=== PATIENT | female | born 1995 | race Caucasian/White ===

== ENCOUNTER 2021-07-15 16:10 | Emergency (ER) | payer BC, OTHER ==
[2021-07-15] MEDS ORDERED: SODIUM CHLORIDE 0.9% 1,000 ML IV STA (16:28)
[2021-07-15] MEDS ORDERED: ACETAMINOPHEN TAB 325 MG TAB PO STA (16:28)
[2021-07-15] MEDS ORDERED: cefTRIAXone IN SWFI 1,000 MG/10 ML SYRINGE IVP STA ×2 (16:29→17:17)
[2021-07-15 17:03] LABS: Basophils % (A) 0 %; Eosinophils # (A) 0.1 k/uL (0-0.7); Eosinophils % (A) 1 %; HCT 38.5 % (34.0-46.0); Lymphocytes # (A) 0.5 k/uL (1.0-4.8); Lymphocytes % (A) 4 %; MCH 28.6 pg (25.0-35.0); MCHC 33.9 g/dL (31.0-37.0); MCV 84.4 fL (80.0-100.0); Mean Platelet Volume 7.2; Monocytes # (A) 0.2 k/uL (0-1.0); Monocytes % (A) 2 %; Neutrophils # (A) 9.8 k/uL (1.3-7.7); Neutrophils % (A) 92 %; Platelet Count 212 k/uL (150-450); RBC 4.56 m/uL (3.80-5.40); RDW 12.9 % (11.5-15.5); WBC 10.7 k/uL (3.8-10.6)
[2021-07-15 17:06] LABS: Appearance,Urine Cloudy (Clear); Bacteria,Urine Moderate /hpf; Bilirubin,Urine Negative (Negative); Blood,Urine Moderate (Negative); Budding Yeast,Urine Many /hpf; Color,Urine Yellow; Glucose,Urine (UA) Negative (Negative); Ketones,Urine Negative (Negative); Leukocyte Esterase,Urine Large (Negative); Mucus,Urine Rare /hpf; Nitrite,Urine Positive (Negative); Protein,Urine 1+ (Negative); RBC,Urine 24 /hpf (0-5); Specific Gravity,Urine 1.014 (1.001-1.035); Squamous Epithelial Cell,Urine 4 /hpf (0-4); Urobilinogen,Urine <2.0 mg/dL (<2.0); WBC,Urine >182 /hpf (0-5)
[2021-07-15 17:12] LABS: ALT 15 U/L (4-34); AST 22 U/L (14-36); African American GFR (CKD) >90 (>60 ml/min/1.73 sqM); Albumin 4.7 g/dL (3.5-5.0); Alkaline Phosphatase 43 U/L (38-126); Anion Gap 11 mmol/L; Blood Urea Nitrogen 12 mg/dL (7-17); Calcium 9.3 mg/dL (8.4-10.2); Carbon Dioxide 24 mmol/L (22-30); Chloride 100 mmol/L (98-107); Glucose 111 mg/dL (74-99); Non-African American GFR(CKD) >90 (>60 ml/min/1.73 sqM); Potassium 3.8 mmol/L (3.5-5.1); Sodium 135 mmol/L (137-145); Total Protein 7.7 g/dL (6.3-8.2)
--- NOTE | 2021-07-15 17:33 | ED ---
Fever HPI - General Chief Complaint: Fever Stated Complaint: fever, r side rib pain Time Seen by Provider: 07/15/21 16:19 Source: patient Mode of arrival: ambulatory Limitations: no limitations - History of Present Illness Initial Comments: 26 -year-old male presenting to emergency department with chief complaint of flank pain and UTI. Patient reports she was treated about 1 week ago for urinary tract infection with Bactrim for 3 days. Patient reports the symptoms improved but now they have returned with changes to her frequency but denies any dysuria or urgency. States she is also his parents and right-sided flank pain. Reports that she also developed a fever but denies any nausea vomiting or diarrhea. Denies hematuria, hematochezia or melena. Denies any vaginal symptoms. Denies possibility for . - Related Data Allergies Allergy/AdvReac Type Severity Reaction Status Date / Time No Known Allergies Allergy Verified 07/15/21 16:15 Review of Systems ROS Statement: Those systems with pertinent positive or pertinent negative responses have been documented in the HPI. ROS Other: All systems not noted in ROS Statement are negative. Past Medical History Past Medical History: No Reported History History of Any Multi-Drug Resistant Organisms: None Reported Past Surgical History: No Surgical Hx Reported Past Psychological History: No Psychological Hx Reported Smoking Status: Never smoker Past Alcohol Use History: None Reported Past Drug Use History: None Reported General Exam Limitations: no limitations General appearance: alert, in no apparent distress Head exam: Present: atraumatic, normocephalic, normal inspection Eye exam: Present: normal appearance, PERRL, EOMI Pupils: Present: normal accommodation ENT exam: Present: normal exam, normal oropharynx, mucous membranes moist Neck exam: Present: normal inspection, full ROM. Absent: tenderness Respiratory exam: Present: normal lung sounds bilaterally. Absent: respiratory distress, wheezes, rales, rhonchi, stridor, chest wall tenderness, accessory muscle use Cardiovascular Exam: Present: regular rate, normal rhythm, normal heart sounds. Absent: systolic murmur GI/Abdominal exam: Present: soft, tenderness (Mild suprapubic tenderness.). Absent: distended, guarding, rebound, rigid Extremities exam: Present: normal inspection, full ROM, normal capillary refill. Absent: tenderness, pedal edema, joint swelling Back exam: Present: normal inspection, full ROM, CVA tenderness (R). Absent: tenderness, CVA tenderness (L), muscle spasm, paraspinal tenderness, vertebral tenderness Neurological exam: Present: alert, oriented X3 Psychiatric exam: Present: normal affect, normal mood Skin exam: Present: warm, dry, intact, normal color Course Vital Signs 07/15/21 16:12 Temperature 102.9 F H Pulse Rate 122 H Respiratory 20 Rate Blood Pressure 121/74 O2 Sat by Pulse 98 Oximetry Medical Decision Making - Medical Decision Making 26-year-old female presents to the emergency department with a chief complaint of a fever. On physical examination, patient is well-appearing resting comfortably in bed. Right CVA tenderness. Mild suprapubic tenderness also noted. Patient was given antipyretics, fluids and 1 g Rocephin. On reevaluation, she reports feeling better. Laboratory work reveals mild leukocytosis of 10.7 K. UA positive for nitrates, leukocyte esterase and white blood cells. Urine negative urine . Blood cultures pending. Urine cultures pending. Lactic acid within normal limits. Patient was given antipyretics in the ED. Advised to continue Tylenol and Motrin. Patient will be discharged in 10 days of Keflex. Strict return parameters were thoroughly discussed the patient was understanding and agreeable. Case discussed with Dr. Vazquez - Lab Data Result diagrams: 07/15/21 16:58 07/15/21 16:58 Lab Results 07/15/21 07/15/21 07/15/21 Range/Units 16:58 16:58 16:58 WBC 10.7 H (3.8-10.6) k/uL RBC 4.56 (3.80-5.40) m/uL Hgb 13.0 (11.4-16.0) gm/dL Hct 38.5 (34.0-46.0) % MCV 84.4 (80.0-100.0) fL MCH 28.6 (25.0-35.0) pg MCHC 33.9 (31.0-37.0) g/dL RDW 12.9 (11.5-15.5) % Plt Count 212 (150-450) k/uL MPV 7.2 Neutrophils % 92 % Lymphocytes % 4 % Monocytes % 2 % Eosinophils % 1 % Basophils % 0 % Neutrophils # 9.8 H (1.3-7.7) k/uL Lymphocytes # 0.5 L (1.0-4.8) k/uL Monocytes # 0.2 (0-1.0) k/uL Eosinophils # 0.1 (0-0.7) k/uL Basophils # 0.0 (0-0.2) k/uL Sodium 135 L (137-145) mmol/L Potassium 3.8 (3.5-5.1) mmol/L Chloride 100 (98-107) mmol/L Carbon Dioxide 24 (22-30) mmol/L Anion Gap 11 mmol/L BUN 12 (7-17) mg/dL Creatinine 0.63 (0.52-1.04) mg/dL Est GFR (CKD-EPI)AfAm >90 (>60 ml/min/1.73 sqM) Est GFR (CKD-EPI)NonAf >90 (>60 ml/min/1.73 sqM) Glucose 111 H (74-99) mg/dL Plasma Lactic Acid [place] 0.9 (0.7-2.0) mmol/L Calcium 9.3 (8.4-10.2) mg/dL Total Bilirubin 1.0 (0.2-1.3) mg/dL AST 22 (14-36) U/L ALT 15 (4-34) U/L Alkaline Phosphatase 43 (38-126) U/L Total Protein 7.7 (6.3-8.2) g/dL Albumin 4.7 (3.5-5.0) g/dL Urine Color Urine Appearance (Clear) Urine pH (5.0-8.0) Ur Specific [place] (1.001-1.035) Urine Protein (Negative) Urine Glucose (UA) (Negative) Urine Ketones (Negative) Urine Blood (Negative) Urine Nitrite (Negative) Urine Bilirubin (Negative) Urine Urobilinogen (<2.0) mg/dL Ur Leukocyte Esterase (Negative) Urine RBC (0-5) /hpf Urine WBC (0-5) /hpf Urine WBC Clumps (None) /hpf Ur Squamous Epith Cells (0-4) /hpf Urine Bacteria (None) /hpf Urine Mucus (None) /hpf Urine Yeast (Budding) (None) /hpf Urine HCG, Qual (Not Detectd) 07/15/21 07/15/21 Range/Units 16:58 16:58 WBC (3.8-10.6) k/uL RBC (3.80-5.40) m/uL Hgb (11.4-16.0) gm/dL Hct (34.0-46.0) % MCV (80.0-100.0) fL MCH (25.0-35.0) pg MCHC (31.0-37.0) g/dL RDW (11.5-15.5) % Plt Count (150-450) k/uL MPV Neutrophils % % Lymphocytes % % Monocytes % % Eosinophils % % Basophils % % Neutrophils # (1.3-7.7) k/uL Lymphocytes # (1.0-4.8) k/uL Monocytes # (0-1.0) k/uL Eosinophils # (0-0.7) k/uL Basophils # (0-0.2) k/uL Sodium (137-145) mmol/L Potassium (3.5-5.1) mmol/L Chloride (98-107) mmol/L Carbon Dioxide (22-30) mmol/L Anion Gap mmol/L BUN (7-17) mg/dL Creatinine (0.52-1.04) mg/dL Est GFR (CKD-EPI)AfAm (>60 ml/min/1.73 sqM) Est GFR (CKD-EPI)NonAf (>60 ml/min/1.73 sqM) Glucose (74-99) mg/dL Plasma Lactic Acid [place] (0.7-2.0) mmol/L Calcium (8.4-10.2) mg/dL Total Bilirubin (0.2-1.3) mg/dL AST (14-36) U/L ALT (4-34) U/L Alkaline Phosphatase (38-126) U/L Total Protein (6.3-8.2) g/dL Albumin (3.5-5.0) g/dL Urine Color Yellow Urine Appearance Cloudy H (Clear) Urine pH 6.0 (5.0-8.0) Ur Specific [place] 1.014 (1.001-1.035) Urine Protein 1+ H (Negative) Urine Glucose (UA) Negative (Negative) Urine Ketones Negative (Negative) Urine Blood Moderate H (Negative) Urine Nitrite Positive H (Negative) Urine Bilirubin Negative (Negative) Urine Urobilinogen <2.0 (<2.0) mg/dL Ur Leukocyte Esterase Large H (Negative) Urine RBC 24 H (0-5) /hpf Urine WBC >182 H (0-5) /hpf Urine WBC Clumps Many H (None) /hpf Ur Squamous Epith Cells 4 (0-4) /hpf Urine Bacteria Moderate H (None) /hpf Urine Mucus Rare H (None) /hpf Urine Yeast (Budding) Many H (None) /hpf Urine HCG, Qual Not Detected (Not Detectd) Disposition Clinical Impression: Pyelonephritis Disposition: HOME SELF-CARE Condition: Stable Instructions (If sedation given, give patient instructions): Kidney Infection (ED) Additional Instructions: Please return to the Emergency Department if symptoms worsen or any other concerns. Is patient prescribed a controlled substance at d/c from ED?: No Referrals: Stevenson José MD [Primary Care Provider] - 1-2 days Time of Disposition: 17:33
[2021-07-15 18:10] VITALS: BP 115/64; PULSE 107; RESP 18; TEMP 102.8
== END 2021-07-15 18:10 | disposition home or self-care (01) ==
LOC: EC 16:10
DX: N12 Tubulo-interstitial nephritis, not specified as acute or chronic (principal); R07.81 Pleurodynia
CPT/HCPCS: 36415; 80053; 83605; 85025; 81001; 81025; 87040; 87086; 87077; 87186; 99284; 96374; 96361; J0696

== ENCOUNTER 2022-04-22 03:49 | Emergency (ER) | payer BC, OTHER ==
[2022-04-22 03:59] VITALS: BP 125/75; PULSE 78; RESP 18; TEMP 98.1
[2022-04-22] MEDS ORDERED: IBUPROFEN 600 MG TAB PO STA (04:32)
[2022-04-22] MEDS ORDERED: ACETAMINOPHEN TAB 500 MG TAB PO STA (04:32)
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
== END 2022-04-22 05:22 | disposition home or self-care (01) ==
LOC: EC 03:49
DX: S50.01XA Contusion of right elbow, initial encounter (principal); V89.2XXA Person injured in unspecified motor-vehicle accident, traffic, initial encounter
CPT/HCPCS: 99284